=== PATIENT | male | born 1970 | race Caucasian/White ===

== ENCOUNTER → 2016-07-24 | Outpatient (CLI) | payer OTHER ==
[2016-07-25 06:18] LABS: FSH 2.2 mIU/mL (1.5-12.4); LUTEINIZING HORMONE 4.2 mIU/mL (1.7-8.6); PROLACTIN 17.4 ng/mL (4.0-15.2)
[2016-07-28 09:10] LABS: % FREE TESTOSTERONE 2.33 % (1.50-4.20); TESTOSTERONE FREE 6.06 ng/dL (5.00-21.00); TESTOSTERONE TOTAL 260 ng/dL (348-1197)
== END | disposition home or self-care (01) ==
LOC: LAB 15:39
PROVIDERS: ATTEND Urology
DX: E29.1 Testicular hypofunction (principal); Z12.5 Encounter for screening for malignant neoplasm of prostate
CPT/HCPCS: 36415; 83001; 83002; 84146; 84402; 84403; G0103